=== PATIENT | male | born 1960 | race Caucasian/White ===

== ENCOUNTER 2017-05-17 08:30 | Emergency (ER) | payer SELFPAY ==
[2017-05-17 11:04] VITALS: BP 132/89
--- NOTE | 2017-05-17 14:31 | UC ---
Slick Loya Auryana, scribed for Isabella Ng DO on 05/17/17 at 0953 . Laceration HPI - HPI Summary HPI Summary: 57 year old male presents with laceration on the right ear. Patient reports that he walked into a metal plate while at work - [employer]. Patient reports that it was a clean piece of metal. He also has a ARRIAGA (3/), but denies any LOC , dizziness, fatigue, nausea, blurred vision, tinnitus, pain with bright lights , changes in mood or appetite, problems with balance or coordination, or any visual or hearing disturbances. No PMHx of concussions. FHx is not significant for DM.HTN, or CAD. SHx is not significant for tobacco use. - History Of Current Complaint Chief Complaint: UCLaceration Stated Complaint: EAR LAC Time Seen by Provider: 05/17/17 09:49 Hx Obtained From: Patient Laceration Location: Ear - right Mechanism Of Injury: Blunt Trauma Onset/Duration: Sudden Onset Severity: Mild Pain Intensity: 3 - ARRIAGA Pain Scale Used: 0-10 Numeric Aggravating Factors: Nothing Related History: Headache - Allergies/Home Medications Allergies/Adverse Reactions: Allergies Allergy/AdvReac Type Severity Reaction Status Date / Time Penicillins Allergy Hives Verified 05/17/17 08:35 Home Medications: Home Medications Zolpidem TAB* [Ambien*] 1 tab PO PRN 05/17/17 [History] PMH/Surg Hx/FS Hx/Imm Hx Other Neurological History: no history of concussions - Surgical History Surgical History: Yes Surgery Procedure, Year, and Place: RIGHT THUMB - Family History Known Family History: Negative: Cardiac Disease, Hypertension, Diabetes - Social History Occupation: Employed Full-time Lives: With Family Alcohol Use: Occasionally Substance Use Type: None Smoking Status (MU): Never Smoked Tobacco Review of Systems Constitutional: Negative Skin: Negative Eyes: Negative ENT: Negative Respiratory: Negative Cardiovascular: Negative Gastrointestinal: Negative Genitourinary: Negative Motor: Negative Neurovascular: Negative Musculoskeletal: Negative Neurological: Headache Psychological: Negative All Other Systems Reviewed And Are Negative: Yes Physical Exam Triage Information Reviewed: Yes Appearance: Well-Appearing, No Pain Distress, Well-Nourished Vital Signs: Initial Vital Signs Temp 98.6 F 05/17/17 08:36 Pulse 68 05/17/17 08:36 Resp 18 05/17/17 08:36 BP 121/89 05/17/17 08:36 Pulse Ox 97 05/17/17 08:36 Vital Signs Reviewed: Yes Eyes: Positive: Conjunctiva Clear. Negative: Discharge ENT: Positive: Hearing grossly normal. Negative: Muffled/hoarse voice Neck exam: Normal Neck: Positive: Supple Respiratory: Positive: Lungs clear, Normal breath sounds, No respiratory distress, No accessory muscle use Cardiovascular: Positive: RRR, No Murmur Musculoskeletal Exam: Normal Musculoskeletal: Positive: Strength Intact Neurological: Positive: Alert, Muscle Tone Normal, Other: - A&Ox3, CN II-XII INTACT, SENSORY MOTOR INTACT, REFLEXES INTACT, NO CEREBELLAR SIGNS, FACIAL SYMMETRY, NEGATIVE ROMBERG, NORMAL GAIT Psychological Exam: Normal Psychological: Positive: Age Appropriate Behavior Skin Exam: Normal, Other - warn, dry and normal color Skin: Positive: Other - 1 cm laceration at the right ear Laceration Repair - Laceration Repair right ear Laceration Size After Repair: Length (cm) - 1cm Debridement: cleaned with NS Modified For Repair: No Cleansing Completed Via Routine Prep: Yes Irrigation With Pressure Irrigation Device: No Closure Material: Skin Adhesive, SteriStrips Closure Method: Single Layer Laceration Course/Dx - Differential Dx - Laceration/Wound Provider Diagnoses: Laceration. Concussion Discharge - Discharge Plan Condition: Stable Disposition: HOME Prescriptions: Cephalexin CAP* [Keflex CAP*] 500 mg PO BID #20 cap Patient Education Materials: Laceration (ED), Concussion (ED), Skin Adhesive Care (ED), Steristrips (ED), Facial Laceration (ED) Forms: *Work Release Referrals: [facility] [place] [facility] [place] [facility] [Outside] (Follow up with your PCP early next week.) Additional Instructions: WE ARE GIVING YOU A PROPHALACTIC ANTIBIOTIC TO PREVENT A CARTILAGE INFECTION. CEPHALOSPORINS: An antibiotic of the cephalosporin class has been prescribed. This type of antibiotic covers a wide variety of infections, including those of the skin, lungs, middle ear, and urinary tract. This antibiotic is somewhat similar to the penicillin family. In rare cases , a person who is allergic to penicillin will also be allergic to this medication. If you have had a severe allergic reaction to penicillin, and have not taken this antibiotic since that time, notify your doctor. Antibiotics which cover many germs ("broad spectrum" antibiotics) are more likely to cause diarrhea or "yeast" infections. Women prone to vaginal yeast problems may suffer an attack after taking this antibiotic. In infants, oral thrush (white spots "stuck" on the cheek) or yeast diaper rash may result. See your doctor if these problems occur. Call the doctor at once if you develop hives, itching, shortness of breath , or lightheadedness. ANYTIME YOU TAKE AN ANTIBIOTIC, IT IS IMPORTANT TO REPLENISH THE BODY'D SUPPLY OF "GOOD BACTERIA." YOU CAN GET GOOD BACTERIA FROM HIGH QUALITY CULTURED FOODS SUCH LOCAL YOGURT, SOUR KRAUT, [place], NATURALLY FERMENTED PICKLES AND PROBIOTIC DRINKS. YOU CAN ALSO GET GOOD BACTERIA FROM A PROBIOTIC SUPPLEMENT. FOR YOUR CONCUSSION: YOU REQUIRE BRAIN REST UNTIL YOUR SYMPTOMS RESOLVE COMPLETELY. WHEN YOU FEEL LIKE YOURSELF AGAIN, RE-ENTER LIFE GRADUALLY. IF BRAIN STIMULATION CAUSES SYMPTOMS TO RECUR, YOU REQUIRE MORE REST. The documentation as recorded by the Slick sumner Auryana accurately reflects the service I personally performed and the decisions made by me, Isabella Ng DO.
== END 2017-05-17 10:55 | disposition home or self-care (01) ==
LOC: UCEAST 08:30
DX: S01.311A Laceration without foreign body of right ear, initial encounter (principal); W22.8XXA Striking against or struck by other objects, initial encounter; Y93.01 Activity, walking, marching and hiking; Y92.9 Unspecified place or not applicable; Z88.0 Allergy status to penicillin
CPT/HCPCS: 12011; 99202; G0463